=== PATIENT | female | born 1995 | race Hispanic/Latino ===

== ENCOUNTER 2025-04-23 12:34 | Outpatient (CLI) | payer BC | END 2025-04-23 12:35 | disposition home or self-care (01) | LOC: CSHULT 12:34 | PROVIDERS: ATTEND Family Medicine | DX: Z34.02 Encounter for supervision of normal first pregnancy, second trimester (principal); Z3A.22 22 weeks gestation of pregnancy | CPT/HCPCS: 76805 ==